=== PATIENT | male | born 1995 | race African-American/Black ===

== ENCOUNTER 2017-12-23 00:22 | Emergency (ER) | payer SELFPAY ==
[2017-12-23] MEDS ORDERED: TRAMADOL HCL 50 MG TABLET PO ONE (02:12)
--- NOTE | 2017-12-23 02:22 | ER Document Report ---
ED General - General Mode of Arrival: Ambulatory Information source: Patient TRAVEL OUTSIDE OF THE [place] IN LAST 30 DAYS: No <GEOVANNA COLEMAN - Last Filed: 12/23/17 03:40> <UZAIR MERCADO - Last Filed: 12/23/17 04:55> - General Chief Complaint: Toothache Stated Complaint: TOOTHACHE Time Seen by Provider: 12/23/17 01:29 Notes: 22 y.o. male presents to the ED with a toothache to an upper, left tooth of onset 3 days ago. Pt denies going to the dentist because his tooth was not bothering him much during the day. Pt has no other complaints at this time and denies any other medical issues. (GEOVANNA COLEMAN) - Related Data Allergies/Adverse Reactions: No Known Allergies Allergy (Unverified 12/23/17 00:39) Past Medical History - General Information source: Patient - Social History Smoking Status: Former Smoker - Vapes now Patient has suicidal ideation: No Patient has homicidal ideation: No Renal/ Medical History: Denies: Hx Peritoneal Dialysis <GEOVANNA COLEMAN - Last Filed: 12/23/17 03:40> - Social History Smoking Status: Current Every Day Smoker Family History: Reviewed & Not Pertinent <UZAIR MERCADO - Last Filed: 12/23/17 04:55> Review of Systems - Review of Systems Constitutional: No symptoms reported EENT: See HPI, Dental problem Cardiovascular: No symptoms reported Respiratory: No symptoms reported Gastrointestinal: No symptoms reported Genitourinary: No symptoms reported Male Genitourinary: No symptoms reported Musculoskeletal: No symptoms reported Skin: No symptoms reported Hematologic/Lymphatic: No symptoms reported Neurological/Psychological: No symptoms reported -: Yes All other systems reviewed and negative <GEOVANNA COLEMAN - Last Filed: 12/23/17 03:40> Physical Exam <GEOVANNA COLEMAN - Last Filed: 12/23/17 03:40> <UZAIR MERCADO - Last Filed: 12/23/17 04:55> - Vital signs Vitals: Temp Pulse Resp BP Pulse Ox 99.2 F 78 20 150/89 H 98 12/23/17 00:59 12/23/17 00:59 12/23/17 00:59 12/23/17 00:59 12/23/17 00:59 - Notes Notes: Physical Exam: General: Appears well. Sleeping upon entering room. HEENT: Normocephalic. Atraumatic. PERRL. Extraocular movements intact. Oropharynx clear. Broken upper premolar on the left. Neck: Supple. Non-tender. Respiratory: No respiratory distress. Clear and equal breath sounds bilaterally. Cardiovascular: Regular rate and rhythm. Abdominal: Normal Inspection. Non-tender. No distension. Normal Bowel Sounds. Back: Non-tender. No deformity or step off. Extremities: Moves all four extremities. Upper extremities: Normal inspection. Normal ROM. Lower extremities: Normal inspection. No edema. Normal ROM. Neurological: Normal cognition. AAOx3. Normal speech. Psychological: Normal affect. Normal Mood. Skin: Warm. Dry. Normal color. (GEOVANNA COLEMAN) Course <GEOVANNA COLEMAN - Last Filed: 12/23/17 03:40> <UZAIR MERCADO - Last Filed: 12/23/17 04:55> - Re-evaluation Re-evalutation: 12/23/17 Patient presents with dental pain. Patient states that he had some pain in his upper left premolar that has become worse over the last few days. Receive Ultram with good results. States that he is able to follow-up with a dentist. Will be started on penicillin for possible pulpitis. No other worries or concerns. Stable for discharge. (UZAIR MERCADO) - Vital Signs Vital signs: Temp Pulse Resp BP Pulse Ox 98.4 F 75 20 138/79 H 98 12/23/17 03:50 12/23/17 03:50 12/23/17 03:50 12/23/17 03:50 12/23/17 03:50 Discharge <GEOVANNA COLEMAN - Last Filed: 12/23/17 03:40> <UZAIR MERCADO - Last Filed: 12/23/17 04:55> - Discharge Clinical Impression: Toothache Condition: Stable Disposition: HOME, SELF-CARE Instructions: Toothache ([facility]) Prescriptions: Penicillin V Potassium [Penicillin Vk 500 mg Tablet] 500 mg PO QID #40 tablet Tramadol HCl 50 mg PO BID #6 tablet Forms: Smoking Cessation Education Scribe Attestation: 12/23/17 04:52 I personally performed the services described in the documentation, reviewed and edited the documentation which was dictated to the scribe in my presence, and it accurately records my words and actions. (UZAIR MERCADO) Scribe Documentation - Scribe Written by Scribchelsy:: Dash Glasgow 12/23/17 [id number] acting as scribe for :: Sobia <GEOVANNA COLEMAN - Last Filed: 12/23/17 03:40>
[2017-12-23 03:56] VITALS: BP 138/79
== END 2017-12-23 03:50 | disposition home or self-care (01) ==
LOC: ER 00:22
DX: K08.89 Other specified disorders of teeth and supporting structures (principal); F17.200 Nicotine dependence, unspecified, uncomplicated
CPT/HCPCS: 99282